=== PATIENT | male | born 1975 | race Caucasian/White ===

== ENCOUNTER 2018-06-05 17:34 | Emergency (ER) | payer OTHER ==
--- NOTE | 2018-06-05 17:41 | PDOC ---
Rapid Medical Evaluation Time Seen by Provider: 06/05/18 17:37 Medical Evaluation: Allergies Allergy/AdvReac Type Severity Reaction Status Date / Time No Known Allergies Allergy Verified 06/05/18 17:38 06/05/18 17:39 I have performed a brief in-person evaluation of this patient. The patient presents with a chief complaint of: rectal pain and swelling x 2 weeks. H/o rectal abscesses Pertinent physical exam findings:stable I have ordered the following: nothing The patient will proceed to the ED for further evaluation. Discharge Disposition - Diagnosis Rectal pain - Referrals - Patient Instructions - Post Discharge Activity
[2018-06-05 17:42] VITALS: BP 127/96; PULSE 87; TEMP 98.9; BMI 27.8
--- NOTE | 2018-06-05 18:33 | PDOC ---
History of Present Illness - General Chief Complaint: Pain Stated Complaint: NOT FEELING WELL Time Seen by Provider: 06/05/18 17:37 - History of Present Illness Initial Comments: 06/05/18 18:30 42-year-old male without comorbidities presents for evaluation of rectal pain 2 weeks. No other associated symptoms. Past History - Past Medical History Allergies/Adverse Reactions: Allergies Allergy/AdvReac Type Severity Reaction Status Date / Time No Known Allergies Allergy Verified 06/05/18 17:38 Home Medications: Ambulatory Orders Amox-Tr/K Cl [Augmentin - 875Mg Tablet] 1 tab PO BID #20 tablet 06/05/18 COPD: No - Immunization History Immunization Up to Date: Yes - Suicide/Smoking/Psychosocial Hx Smoking History: Never smoked Hx Alcohol Use: No Substance Use Type: None Review of Systems - Review of Systems ABD/GI: Yes: See HPI, Other All Other Systems: Reviewed and Negative *Physical Exam - Vital Signs Last Vital Signs Temp Pulse Resp BP Pulse Ox 98.9 F 87 16 127/96 99 06/05/18 17:38 06/05/18 17:38 06/05/18 17:38 06/05/18 17:38 06/05/18 17:38 - Physical Exam Comments: 06/05/18 18:30 HEAD: NC/AT EYES: Conjuntiva clear ABDOMEN: Soft NT ND MS: Full ROM in all joints without edema NEUROLOGIC: No gross sensory or motor deficits, NVID SKIN: Normal color and temperature no lesions or rashes Rectal: There is an indurated area of erythema without fluctuance at the right anal verge at the 10 o'clock position subcentimeter with associated tenderness and mild induration. There is an adjacent nonfluctuant tender area without fluctuance and mild surrounding erythema that is draining. Medical Decision Making - Medical Decision Making 06/05/18 18:32 The patient has to perianal abscesses. One is draining one is indurated. I have advised him on warm soaks and sits baths and given a prescription for by mouth antibiotics. As well as general surgery follow-up. They cannot be incised and drained today *DC/Admit/Observation/Transfer Diagnosis at time of Disposition: Rectal pain - Discharge Dispostion Disposition: HOME Condition at time of disposition: Stable Decision to Admit order: No - Prescriptions Prescriptions: Amox-Tr/K Cl [Augmentin - 875Mg Tablet] 1 tab PO BID #20 tablet - Referrals Referrals: Axel Oden MD [Staff Physician] - - Patient Instructions Printed Discharge Instructions: DI for Anal Abscess Additional Instructions: Please return to the emergency room should symptoms worsen or go unresolved. Please follow-up general surgery in 2-3 days for further evaluation and treatment options. Continue the warm sitz baths and warm compresses as directed and take the antibiotics as directed. - Post Discharge Activity
== END 2018-06-05 18:49 | disposition home or self-care (01) ==
LOC: JERFT 17:34
DX: K61.1 Rectal abscess (principal)
CPT/HCPCS: 99281-25